=== PATIENT | male | born 1975 | race Caucasian/White ===

== ENCOUNTER 2023-10-12 17:49 | Emergency (ER) | payer SELFPAY ==
[~2023-10-12] VITALS: Ht 188 cm; Wt 81.8 kg
[~2023-10-12 17:49] MED LIST: DEPAKOTE 250MG250 MG PO; EFFEXOR 50M50 MG/TAB PO; IBU800 M1 PO; KLONOPIN 0.5MG0.5 MG PO; MOTRIN 800800 MG/TAB PO; NORCO 325 MG-51 TAB PO; PERCOCET 325 MG1 TA2 PO; PREDNISONE20 MG PO; PROTONIX20 MG PO; REGLAN 10MG10 MG/TAB PO; ROBAXIN 75750 MG/TAB PO; ULTRAM 50MG TAB50 MG PO; ZESTRIL 20MG TA20 MG PO
[2023-10-12 18:05] VITALS: TEMP 98.6
[2023-10-12] MEDS ORDERED: Ketorolac 15 MG/ML VIAL IV ONE (20:30)
[2023-10-12] MEDS ORDERED: Haloperidol Lactate 5 MG/ML VIAL IV ONE (20:30)
[2023-10-12] MEDS ORDERED: diphenhydrAMINE 50 MG/ML 1 ML VIAL IV ONE (20:30)
[2023-10-12] MEDS ORDERED: LR 1,000 ML IV ONE (20:30)
[2023-10-12] MEDS ORDERED: dexAMETHasone 10 MG/ML VIAL IV ONE (20:30)
[2023-10-12] MEDS ORDERED: Mag/Al Hydrox/Simeth Susp 30 ML CUP PO ONE (20:30)
[2023-10-12 20:32] LABS: BASO # 0.2 K/mm3 (0.0-0.2); BASO % 1.3 % (0.0-2.0); EOS # 0.6 K/mm3 (0.0-0.7); EOS % 4.6 % (0.0-4.0); GRAN # 6.6 K/mm3 (1.4-6.5); GRAN % 55.8 % (42.2-75.2); HEMOGLOBIN 15.3 g/dl (13.5-18.0); LYMPH # 3.8 K/mm3 (1.2-3.4); LYMPH % 32.1 % (20.0-51.0); MEAN CELL VOLUME 89 fl (80.0-100.0); MEAN CORPUSCULAR HEMOGLOBIN 30 pg (27-31); MEAN CORPUSCULAR HGB CONC 33 g/dl (33.0-37.0); MONO # 0.7 K/mm3 (0.1-0.6); MONO % 5.9 % (1.7-9.3); PLATELET COUNT 333 K/mm3 (130-400); RED BLOOD COUNT 5.19 M/mm3 (4.20-5.60); REDCELL DISTRIBUTION WIDTH-CV 13.7 % (11.5-14.5)
[2023-10-12 20:42] LABS: ALBUMIN 4.6 g/dL (3.5-5.0); BILIRUBIN,TOTAL 0.5 mg/dL (0.2-1.2); CALCIUM 10.7 mg/dL (8.4-10.2); CREATININE, serum 1.09 mg/dL (0.72-1.25); TOTAL PROTEIN 7.9 g/dl (6.2-8.1)
[2023-10-12] MEDS ORDERED: Iohexol 300 - 100 ML VIAL IV ONE (21:41)
[2023-10-12] MEDS ORDERED: NS 100 ML IV SCH (21:41)
[2023-10-12 22:50] VITALS: BP 161/79; PULSE 82
== END 2023-10-12 23:02 | disposition home or self-care (01) ==
LOC: COL.ER 17:49
PROVIDERS: Emergency Medicine
DX: G43.909 Migraine, unspecified, not intractable, without status migrainosus (principal); D17.9 Benign lipomatous neoplasm, unspecified
CPT/HCPCS: J1100; J1200; J1630; J1885; J7120; Q9967